=== PATIENT | female | born 1975 ===

== ENCOUNTER 2021-01-30 15:14 | Inpatient (IN) | payer MEDICAID, OTHER ==
[~2021-01-30] VITALS: Ht 165.1 cm; Wt 161.9 kg
[2021-01-30] MEDS ORDERED: cloNIDine HCL 0.1 MG TAB PO ONE ×2 (15:30→15:45)
[2021-01-30] MEDS ORDERED: cloNIDine HCL 0.1 MG TAB ONE (15:37)
[2021-01-30 16:19] LABS: Urine Bacteria FEW /hpf (None Seen); Urine Blood Negative /uL (Negative); Urine Hyaline Cast FEW /lpf (0 - 2); Urine Mucus FEW (None Seen); Urine Specific Gravity 1.024 (1.001-1.035); Urine WBC 5 /hpf (0 - 5)
[2021-01-30 16:19] LABS: Basophils # (auto) 0.1 10 ^3/uL (0-0.2); Eosinophils # (auto) 0.2 10 ^3/uL (0-0.8); Mean Corpuscular Volume 74.5 fL (80.0-100.0); Nucleated Red Blood Cells % 0.1 %
[2021-01-30 16:22] LABS: Basophils % (auto) 0.7 % (0.0-2.0); Eosinophils % (auto) 2.6 % (0.0-7.0); Hematocrit 41.6 % (36.0-46.0); Hemoglobin 13.7 g/dL (12.2-16.2); Lymphocytes # (auto) 3.5 10 ^3/uL (0.4-5.4); Lymphocytes % (auto) 37.4 % (10.0-50.0); Mean Corpuscular Hemoglobin 24.5 pg (28.0-32.0); Mean Corpuscular Hgb Conc. 32.9 g/dL (32.0-36.0); Monocytes # (auto) 0.6 10 ^3/uL (0-1.3); Monocytes % (auto) 6.3 % (0.0-12.0); Neutrophils # (auto) 4.9 10 ^3/uL (1.6-8.6); Platelet Count (auto) 226 10^3/uL (140-450); Red Blood Cells 5.58 10^6/uL (4.0-5.20); Red Cell Distribution Width 16.6 % (11.8-14.3); White Blood Cell 9.3 10^3/uL (4.4-10.8)
[2021-01-30 16:44] LABS: Albumin 3.8 g/dL (3.4-5.0); BUN/Creatinine Ratio 8.9; Bilirubin, Total 0.5 mg/dL (0.2-1.0); Calcium 9.4 mg/dL (8.5-10.1); Potassium 3.3 mmol/L (3.5-5.1); Total Protein 8.3 g/dL (6.4-8.2)
[2021-01-30 18:48] LABS: Lipase 117 U/L (73-393)
[2021-01-30] MEDS ORDERED: POTASSIUM CHL 20 Meq TABLET PO ONE (22:30)
[2021-01-31] MEDS ORDERED: MORPHINE SULF INJ 2 MG/ML SYRINGE 1ML IV PRN (00:15)
[2021-01-31] MEDS ORDERED: DEXTROSE (50%) 50ML SYRG IV PRN (00:15)
[2021-01-31] MEDS ORDERED: NITROGLYCERIN 0.4 MG SL TAB SL PRN (00:15)
[2021-01-31] MEDS ORDERED: ACETAMINOPHEN 325 MG TAB PO PRN (00:15)
[2021-01-31] MEDS ORDERED: ONDANSETRON HCL 4 MG/2 ML VIAL IV PRN (00:15)
[2021-01-31] MEDS: SODIUM CHLORIDE 0.9% 1,000 ML IV SCH ×2 (00:58→16:55)
[2021-01-31 02:40] VITALS: BP 157/103
[2021-01-31] MEDS: HYDROcodone-ACET 5/325MG TAB PO PRN ×3 (03:18→19:22)
[2021-01-31] MEDS: hydrALAZINE HCL 20 MG/ML VL IV PRN ×2 (03:19→17:36)
[2021-01-31] MEDS ORDERED: ASPI-543 PO (04:17)
[2021-01-31] MEDS ORDERED: HYDR25TA4 PO (04:17)
[2021-01-31] MEDS ORDERED: FURO40TA4 PO (04:17)
[2021-01-31] MEDS ORDERED: LOSA-69 PO (04:17)
[2021-01-31] MEDS ORDERED: POTA1TAB61 PO (04:17)
[2021-01-31] MEDS ORDERED: AMLO-489 PO (04:17)
[2021-01-31] MEDS ORDERED: METF-916 PO (04:17)
[2021-01-31 05:00] VITALS: BP 131/69
[2021-01-31] MEDS: InsuLIN REG 1unit/0.01ml Soln (100units/ml) SC SCH ×3 (05:31→17:42)
[2021-01-31] MEDS: ACCU-CHEK COMFORT CURVE STRIP VI SCH ×4 (05:34→22:10)
[2021-01-31 07:29] LABS: Basophils # (auto) 0 10 ^3/uL (0-0.2); Basophils % (auto) 0.5 % (0.0-2.0); Eosinophils # (auto) 0.2 10 ^3/uL (0-0.8); Eosinophils % (auto) 2.6 % (0.0-7.0); Hematocrit 39.9 % (36.0-46.0); Hemoglobin 12.7 g/dL (12.2-16.2); Lymphocytes # (auto) 3.1 10 ^3/uL (0.4-5.4); Lymphocytes % (auto) 38.9 % (10.0-50.0); Mean Corpuscular Hemoglobin 23.8 pg (28.0-32.0); Mean Corpuscular Hgb Conc. 31.8 g/dL (32.0-36.0); Mean Corpuscular Volume 74.9 fL (80.0-100.0); Monocytes # (auto) 0.5 10 ^3/uL (0-1.3); Monocytes % (auto) 6.5 % (0.0-12.0); Neutrophils % (auto) 51.5 % (37.0-80.0); Platelet Count (auto) 199 10^3/uL (140-450); Red Blood Cells 5.32 10^6/uL (4.0-5.20); Red Cell Distribution Width 16.8 % (11.8-14.3); White Blood Cell 7.9 10^3/uL (4.4-10.8)
[2021-01-31 07:44] LABS: Potassium 3.2 mmol/L (3.5-5.1)
[2021-01-31 07:52] LABS: Albumin 3.2 g/dL (3.4-5.0); Bilirubin, Total 0.6 mg/dL (0.2-1.0); Calcium 8.9 mg/dL (8.5-10.1); Total Protein 7.2 g/dL (6.4-8.2)
[2021-01-31 09:00] VITALS: BP 147/95
[2021-01-31] MEDS ORDERED: cefTRIAXone 1GM/50ML D5W 50 ML IV ONE (09:15)
[2021-01-31] MEDS ORDERED: POTASSIUM EFFERVESENT TAB 25 MEQ PO ONE (09:15)
[2021-01-31] MEDS ORDERED: FAMOTIDINE (10MG/ML) 2ML VL IV SCH (10:00)
[2021-01-31] MEDS: ENOXAPARIN SOD 40 MG/0.4 ML SYRINGE SC SCH ×2 (10:05→21:57)
[2021-01-31] MEDS: LISINOPRIL 20 MG TAB PO SCH (10:07)
[2021-01-31 11:24] LABS: INR 1.04 (0.9-1.15)
[2021-01-31 13:00] VITALS: BP 155/86
[2021-01-31] MEDS: PANTOPRAZOLE 40 MG TAB PO SCH ×2 (14:29→21:57)
[2021-01-31 17:00] VITALS: BP 157/99
[2021-01-31 22:00] VITALS: BP 154/107
[2021-01-31] MEDS ORDERED: InsuLIN REG 1unit/0.01ml Soln (100units/ml) SC SCH (22:00)
[2021-02-01 05:00] VITALS: BP 120/67
[2021-02-01 06:39] LABS: Basophils # (auto) 0 10 ^3/uL (0-0.2); Basophils % (auto) 0.3 % (0.0-2.0); Eosinophils # (auto) 0.2 10 ^3/uL (0-0.8); Eosinophils % (auto) 3.1 % (0.0-7.0); Hematocrit 39.7 % (36.0-46.0); Hemoglobin 12.6 g/dL (12.2-16.2); Lymphocytes # (auto) 2.8 10 ^3/uL (0.4-5.4); Lymphocytes % (auto) 38.1 % (10.0-50.0); Mean Corpuscular Hemoglobin 23.9 pg (28.0-32.0); Mean Corpuscular Hgb Conc. 31.9 g/dL (32.0-36.0); Monocytes # (auto) 0.5 10 ^3/uL (0-1.3); Monocytes % (auto) 6.5 % (0.0-12.0); Neutrophils # (auto) 3.8 10 ^3/uL (1.6-8.6); Nucleated Red Blood Cells % 0.1 %; Platelet Count (auto) 199 10^3/uL (140-450); Red Blood Cells 5.29 10^6/uL (4.0-5.20); Red Cell Distribution Width 16.9 % (11.8-14.3); White Blood Cell 7.4 10^3/uL (4.4-10.8)
[2021-02-01 06:50] LABS: Albumin 3.2 g/dL (3.4-5.0); Calcium 8.5 mg/dL (8.5-10.1); Potassium 3.3 mmol/L (3.5-5.1)
[2021-02-01] MEDS: InsuLIN REG 1unit/0.01ml Soln (100units/ml) SC SCH ×3 (06:50→18:00)
[2021-02-01] MEDS: ACCU-CHEK COMFORT CURVE STRIP VI SCH ×3 (06:51→18:00)
[2021-02-01 06:54] LABS: BUN/Creatinine Ratio 14.5; Bilirubin, Total 0.4 mg/dL (0.2-1.0); Total Protein 7.2 g/dL (6.4-8.2)
[2021-02-01] MEDS: HYDROcodone-ACET 5/325MG TAB PO PRN ×2 (07:35→15:09)
[2021-02-01] MEDS ORDERED: MIDAZOLAM HCL 5 MG/ML-1ML VIAL ONE (08:55)
[2021-02-01] MEDS ORDERED: fentaNYL CITRATE 100 MCG/2 ML VL ONE (08:55)
[2021-02-01] MEDS ORDERED: LIDOCAINE VISCOUS 2% 15ML UD ONE (08:55)
[2021-02-01] MEDS ORDERED: diphenhdrAMINE HCL 50 MG/1 ML VL ONE (08:55)
[2021-02-01] MEDS ORDERED: SODIUM CHLORIDE LOCK 10 ML ONE (08:56)
[2021-02-01 09:00] VITALS: BP 161/110
[2021-02-01] MEDS: PANTOPRAZOLE 40 MG TAB PO SCH ×2 (09:16→22:57)
[2021-02-01] MEDS: cefTRIAXone 1GM/50ML D5W 50 ML IV SCH (09:16)
[2021-02-01] MEDS: LISINOPRIL 20 MG TAB PO SCH (09:17)
[2021-02-01] MEDS: ENOXAPARIN SOD 40 MG/0.4 ML SYRINGE SC SCH (09:17)
[2021-02-01] MEDS: SODIUM CHLORIDE 0.9% 1,000 ML IV SCH (09:35)
[2021-02-01] MEDS ORDERED: DEXTROSE (50%) 50ML SYRG IV PRN (11:15)
[2021-02-01] MEDS: SOD CHL 0.9%/ KCL 20MEQ 1,000 ML IV SCH (11:32)
[2021-02-01 13:00] VITALS: BP 156/98
[2021-02-01] MEDS: hydrALAZINE HCL 20 MG/ML VL IV PRN (13:04)
[2021-02-01] MEDS ORDERED: GOLYTELY 4L KIT PO ONE (13:45)
[2021-02-01 17:00] VITALS: BP 163/101
[2021-02-01] MEDS: LABETALOL HCL 5 MG/ML 4ML SYRINGE IV PRN ×2 (18:22→21:33)
[2021-02-01 22:00] VITALS: BP 187/116
[2021-02-02] MEDS ORDERED: SUMAtriptan SUCCINATE 25 MG TAB PO ONE ×2 (00:30→09:00)
[2021-02-02 00:34] VITALS: BP 169/91
[2021-02-02] MEDS: InsuLIN REG 1unit/0.01ml Soln (100units/ml) SC SCH ×5 (01:03→23:49)
[2021-02-02] MEDS: ACCU-CHEK COMFORT CURVE STRIP VI SCH ×5 (01:03→23:45)
[2021-02-02] MEDS: LABETALOL HCL 5 MG/ML 4ML SYRINGE IV PRN (01:04)
[2021-02-02 05:00] VITALS: BP 136/114
[2021-02-02 06:09] LABS: BUN/Creatinine Ratio 6.1; Potassium 3.1 mmol/L (3.5-5.1)
[2021-02-02] MEDS: SOD CHL 0.9%/ KCL 20MEQ 1,000 ML IV SCH (06:58)
[2021-02-02] MEDS ORDERED: diphenhdrAMINE HCL 50 MG/1 ML VL ONE (08:42)
[2021-02-02] MEDS ORDERED: SODIUM CHLORIDE LOCK 10 ML ONE ×2 (08:42→13:09)
[2021-02-02] MEDS ORDERED: LIDOCAINE VISCOUS 2% 15ML UD ONE (08:42)
[2021-02-02 09:00] VITALS: BP 159/74
[2021-02-02] MEDS ORDERED: POTASSIUM CHLORIDE 40 MEQ, LIDOCAINE 1% (LOCAL ANESTH.) 4 ML in SODIUM CHL 0.9% 250 ML IV ONE (09:00)
[2021-02-02] MEDS ORDERED: amLODIPine BESYLATE 5 MG TAB PO ONE (09:00)
[2021-02-02] MEDS: PANTOPRAZOLE 40 MG TAB PO SCH ×2 (10:16→22:00)
[2021-02-02] MEDS: cefTRIAXone 1GM/50ML D5W 50 ML IV SCH (10:16)
[2021-02-02] MEDS: LISINOPRIL 20 MG TAB PO SCH (10:17)
[2021-02-02] MEDS: MIDAZOLAM HCL 5 MG/ML-1ML VIAL ONE ×3 (12:58→13:04)
[2021-02-02] MEDS: fentaNYL CITRATE 100 MCG/2 ML VL ONE ×3 (12:58→13:04)
[2021-02-02] MEDS ORDERED: MIDAZOLAM HCL 5 MG/ML-1ML VIAL ONE (13:09)
[2021-02-02] MEDS ORDERED: fentaNYL CITRATE 100 MCG/2 ML VL ONE (13:09)
[2021-02-02 16:37] VITALS: BP 160/99
[2021-02-02 22:00] VITALS: BP 176/98
[2021-02-02] MEDS: SUMAtriptan SUCCINATE 25 MG TAB PO PRN (22:08)
[2021-02-03] VITALS (7 sets, daily range): BP systolic 127–180; BP diastolic 72–104
[2021-02-03] MEDS: SOD CHL 0.9%/ KCL 20MEQ 1,000 ML IV SCH (03:15)
[2021-02-03] MEDS: SUMAtriptan SUCCINATE 25 MG TAB PO PRN ×3 (04:33→22:20)
[2021-02-03] MEDS: ACCU-CHEK COMFORT CURVE STRIP VI SCH ×3 (06:00→18:00)
[2021-02-03] MEDS: InsuLIN REG 1unit/0.01ml Soln (100units/ml) SC SCH ×3 (06:02→18:00)
[2021-02-03 06:42] LABS: Potassium 3.3 mmol/L (3.5-5.1)
[2021-02-03 06:46] LABS: BUN/Creatinine Ratio 9.2
[2021-02-03] MEDS: LABETALOL HCL 5 MG/ML 4ML SYRINGE IV PRN ×4 (07:55→23:35)
[2021-02-03] MEDS ORDERED: POTASSIUM CHL 20 Meq TABLET PO ONE (10:00)
[2021-02-03] MEDS ORDERED: metroNIDAZOLE 500MG/100ML 100 ML IV ONE (10:00)
[2021-02-03] MEDS ORDERED: HYOSCYAMINE SULF 0.125 MG ODT TAB PO ONE (10:00)
[2021-02-03] MEDS ORDERED: amLODIPine BESYLATE 5 MG TAB PO SCH (10:00)
[2021-02-03] MEDS: cefTRIAXone 1GM/50ML D5W 50 ML IV SCH (10:22)
[2021-02-03] MEDS: PANTOPRAZOLE 40 MG TAB PO SCH ×2 (10:23→22:00)
[2021-02-03] MEDS: amLODIPine BESYLATE 5 MG TAB PO SCH (10:28)
[2021-02-03] MEDS: LOSARTAN POTASSIUM 50 MG TAB PO SCH (10:40)
[2021-02-03] MEDS: metroNIDAZOLE 500MG/100ML 100 ML IV SCH ×2 (18:23→22:00)
[2021-02-04] MEDS: ACCU-CHEK COMFORT CURVE STRIP VI SCH ×3 (00:07→11:42)
[2021-02-04 05:00] VITALS: BP 161/90
[2021-02-04] MEDS: metroNIDAZOLE 500MG/100ML 100 ML IV SCH (05:56)
[2021-02-04] MEDS: InsuLIN REG 1unit/0.01ml Soln (100units/ml) SC SCH ×3 (05:57→11:43)
[2021-02-04 08:00] VITALS: BP 148/96
[2021-02-04 09:00] VITALS: BP 148/96
[2021-02-04] MEDS: cefTRIAXone 1GM/50ML D5W 50 ML IV SCH (09:53)
[2021-02-04] MEDS: PANTOPRAZOLE 40 MG TAB PO SCH (09:53)
[2021-02-04] MEDS: amLODIPine BESYLATE 5 MG TAB PO SCH (09:54)
[2021-02-04] MEDS: LOSARTAN POTASSIUM 50 MG TAB PO SCH (09:54)
[2021-02-04 10:58] VITALS: BP 148/96
== END 2021-02-04 11:40 | disposition home or self-care (01) | DRG 244 ==
LOC: ER 15:21 → TELE 01-31 00:02 → TELE-CENTR 01-31 02:40 → CENTRAL 02-01 11:44
PROVIDERS: ADMIT Nurse Practitioner Family; ATTEND Internal Medicine
PROC: 0DJ08ZZ Inspection of Upper Intestinal Tract, Via Natural or Artificial Opening Endoscopic (ICD-10-PCS; principal; 2021-02-02 12:55)
PROC: 0DBK8ZX Excision of Ascending Colon, Via Natural or Artificial Opening Endoscopic, Diagnostic (ICD-10-PCS; 2021-02-02 12:55)
DX: K57.32 Diverticulitis of large intestine without perforation or abscess without bleeding (principal); E66.01 Morbid (severe) obesity due to excess calories; I16.0 Hypertensive urgency; Z68.43 Body mass index [BMI] 50.0-59.9, adult; K64.8 Other hemorrhoids; E87.6 Hypokalemia; Z20.822 Contact with and (suspected) exposure to COVID-19; E11.9 Type 2 diabetes mellitus without complications; I10 Essential (primary) hypertension; J98.11 Atelectasis; E78.5 Hyperlipidemia, unspecified; K63.5 Polyp of colon; Z82.49 Family history of ischemic heart disease and other diseases of the circulatory system; Z79.899 Other long term (current) drug therapy; Z90.49 Acquired absence of other specified parts of digestive tract
CPT/HCPCS: 36415; 43235; 45380; 71045; 74176; 80048; 80053; 80061; 81001; 81025; 82962; 83036; 83690; 83735; 84443; 84484; 84702; 85025; 85610; 86850; 86900; 86901; 87040; 87086; 87426; G0378; J0696; J1815; J2001; J2250; J3490